=== PATIENT | female | born 1995 | race Two or more races ===

== ENCOUNTER → 2023-09-04 16:32 | Outpatient (REF) | payer OTHER, SELFPAY | LOC: PNTC 16:32 | PROVIDERS: ATTENDING PHYSICIAN Nurse Practitioner Family | DX: Z34.91 Encounter for supervision of normal pregnancy, unspecified, first trimester (principal) | CPT/HCPCS: 76801; 76817 ==

== ENCOUNTER → 2023-09-22 16:22 | Outpatient (REF) | payer OTHER, SELFPAY | LOC: PNTC 16:22 | PROVIDERS: ATTENDING PHYSICIAN Obstetrics & Gynecology | DX: Z36.0 Encounter for antenatal screening for chromosomal anomalies (principal); Z36.82 Encounter for antenatal screening for nuchal translucency | CPT/HCPCS: 36415; 76801; 76813 ==

== ENCOUNTER → 2023-11-10 16:21 | Outpatient (REF) | payer OTHER, SELFPAY | LOC: PNTC 16:21 | PROVIDERS: ATTENDING PHYSICIAN Obstetrics & Gynecology | DX: Z34.82 Encounter for supervision of other normal pregnancy, second trimester (principal) | CPT/HCPCS: 76805 ==

== ENCOUNTER → 2024-04-01 14:52 | Outpatient (REF) | payer OTHER, SELFPAY | LOC: PNTC 14:52 | PROVIDERS: ATTENDING PHYSICIAN Obstetrics & Gynecology | DX: O48.0 Post-term pregnancy (principal) | CPT/HCPCS: 59025 ==

== ENCOUNTER 2024-04-05 19:28 | Inpatient (IN) | payer OTHER, SELFPAY ==
[2024-04-05 19:31] VITALS: BMI 28.3
[2024-04-05 19:55] VITALS: BP 123/75
[2024-04-05 20:03] LABS: % Basophils 0.3 % (0-2); % Eosinophils 0.4 % (0-6); % Immature Granulocytes 0.7 % (0-0.5); % Lymphocytes 13.2 % (20.5-51.1); % Monocytes 7.3 % (1.7-9.3); % Neutrophils 78.1 % (42.2-75.2); Absolute Eosinophils 0.1 10^3/uL (0-0.7); Absolute Immature Granulocytes 0.1 10^3/uL (0-0.05); Absolute Lymphocytes 1.9 10^3/uL (1.2-3.4); Hematocrit 37.1 % (37.0-47.0); Hemoglobin 12.9 g/dL (12.0-16.0); Mean Corp Hgb Conc. 34.8 g/dL (33.0-37.0); Mean Corpuscular Hgb 28.9 pg (27.0-31.0); Mean Corpuscular Volume 83.2 fL (81.0-99.0); Mean Platelet Volume 10.6 fL (7.4-10.4); Nucleated Red Blood Cells % 0 %; Platelet Count 267 10^3/uL (130-400); Red Blood Cell Count 4.46 10^6/uL (4.20-5.40); Red Cell Dist. Width 13.9 % (11.5-14.5); White Blood Cell Count 14.1 10^3/uL (4.8-10.8)
[2024-04-05] MEDS: CYTOTEC 50 MICROGRAM VAG (20:12)
[2024-04-06] MEDS: LR 1000 IV ×4 (02:03→22:02)
[2024-04-06] MEDS: CYTOTEC 50 MICROGRAM PO ×3 (04:08→09:37)
[2024-04-06] MEDS: STADOL 1 MG IV ×2 (06:15→10:47)
[2024-04-06] MEDS: SUBLIMAZE 100 MCG EPIDURAL (14:29)
[2024-04-06] MEDS: FENTANYL/BUPIVACAINE 100 EPIDURAL ×2 (14:29→23:12)
[2024-04-06] MEDS: PENICILLIN 110 UNITS IV (14:46)
[2024-04-06] MEDS: CYTOTEC PO (14:55)
[2024-04-06] MEDS: PITOCIN 30 UNITS/NSS 500 ML IV (15:48)
[2024-04-06] MEDS: PENICILLIN 55 UNITS IV ×2 (18:34→22:29)
[2024-04-07] MEDS: BICITRA 30 ML PO (02:50)
[2024-04-07] MEDS: ANCEF 10 IV (02:50)
[2024-04-07] MEDS: TYLENOL 1000 MG PO (02:50)
[2024-04-07 03:33] LABS: B.E. Cord ABG -3.5 mMOL/L; Cord ABG Comment CORD BLOOD; HCO3 Cord ABG 22.7 mmol/L; O2 Saturation % Cord ABG 33.4 %; PCO2 Cord ABG 44 mmHg; PO2 Cord ABG 13 mmHg; pH Cord ABG 7.32
[2024-04-07 03:39] LABS: B.E. Cord ABG -4.9 mMOL/L; HCO3 Cord ABG 21.6 mmol/L; O2 Saturation % Cord ABG 35.2 %; PCO2 Cord ABG 44 mmHg; PO2 Cord ABG 14 mmHg
--- NOTE | 2024-04-07 04:11 | W.IMMPOSTOP ---
Surgical Immed Post Op Note
-
Primary Surgeon: Apple Melgar DO
Assisting Surgeon: Deysi Villareal RN
Pre-op Diagnosis: IOL at 41+3wks, intolerance of labor, meconium-stained fluid, GBS positive
Post-op Diagnosis: Same as above
Procedure Performed: PLTCS
Anesthesia Type: epidural
Specimen / Cultures: placenta; cord gases: 7.32, BE -3.2 and 7.3, BE -4.9
Estimated Blood Loss: 585ml
Complications: none
Operative Findings: normal uterus, b/l tubes and ovaries. Meconium-stained fluid. Female fetus in the OA position, no nuchal cord, though umbilical cord was notably short in length. Apgars 8/9, weight 2885gm. Grossly normal placenta. Mild atony
after delivery, Methergine x1 given. Small amount of oozing from left side of hysterotomy, O'leary suture placed on this side. Surgicel placed over hysterotomy. Hemostasis noted.
[2024-04-07] MEDS: PENICILLIN IV (05:06)
[2024-04-07] MEDS: TORADOL 15 MG IV ×3 (09:53→21:48)
[2024-04-07] MEDS: PRENATAL PLUS 1 TABLET PO (10:02)
[2024-04-07] MEDS: TYLENOL 650 MG PO (20:18)
[2024-04-08] MEDS: TORADOL 15 MG IV (03:52)
[2024-04-08 04:34] LABS: Hematocrit 35.4 % (37.0-47.0); Hemoglobin 11.8 g/dL (12.0-16.0); Mean Corp Hgb Conc. 33.3 g/dL (33.0-37.0); Mean Corpuscular Hgb 29.1 pg (27.0-31.0); Mean Corpuscular Volume 87.2 fL (81.0-99.0); Mean Platelet Volume 10.2 fL (7.4-10.4); Platelet Count 200 10^3/uL (130-400); Red Blood Cell Count 4.06 10^6/uL (4.20-5.40); Red Cell Dist. Width 14.6 % (11.5-14.5); White Blood Cell Count 16.2 10^3/uL (4.8-10.8)
--- NOTE | 2024-04-08 07:48 | W.PN.ANS.POP ---
Anesthesia Post Operative
- Anesthesia Post Op Note
Vital Signs Stable-See Nursing Note: Yes
Airway Patent: Yes
Adequate Pain Control: Yes
Change in Mental Status: No
Current Postoperative Nausea & Vomiting: No
Anesthesia Complications: No
General Anesthetic Recall: No
Unplanned Admission: No
Post Op Hydration Adequate: Yes
[2024-04-08] MEDS: PRENATAL PLUS 1 TABLET PO (08:43)
[2024-04-08] MEDS: MOTRIN 600 MG PO ×3 (10:41→23:03)
[2024-04-09] MEDS: PRENATAL PLUS 1 TABLET PO (07:55)
[2024-04-09] MEDS: SENOKOT-S 1 TABLET PO (10:45)
[2024-04-09 11:51] LABS: Syphilis/T. pallidum Ab Reflex Negative (Negative)
--- NOTE | 2024-04-09 14:44 | W.DS.TRANS ---
DC Summary - [employer]
-
Discharge Instructions:
Discharge Diagnosis/Procedures section
Instructions:
Stand-Alone Forms: LDRP Delivery
Changes to Home Medications: No
Discharge Medications:
DC Medications w/original date entered in [facility]
1 tab PO DAILY Supplement 04/05/24
acetaminophen 325 mg tablet 650 mg (2 x 325 mg) PO Q4HPRN PRN mild pain #0 tabs 04/09/24
calcium carbonate (Calcium Antacid) 400 mg (2 x 200 mg calcium (500 mg)) PO Q6HPRN PRN indigestion #0 tabs 04/09/24
ibuprofen 600 mg tablet 600 mg PO Q6HPRN PRN cramps #40 tabs 04/09/24
sennosides 8.6 mg-docusate sodium 50 mg tablet 1 tab PO DAILYPRN PRN constipation #0 tabs 04/09/24
simethicone 80 mg chewable tablet 80 mg PO TIDPRN PRN flatulence #0 tabs 04/09/24
Home Medication Changes
Pending Results: No
Total time spent discharging patient (in min): 20
--- NOTE | 2024-04-12 08:30 | PN.CDI ---
CDI
- -
CDI:
Please use your independent medical judgment in providing your response.
Physician Documentation Request
Admit Date: [f_Reg Admit Date Time]
Dear Doctor Richie
Clinical Indicators:
The diagnosis of Maternal inflammatory response, stage 1, grade 1 (also called early acute choriamnionitis} was included in the signed path report.
Additional clinical indicators in the chart include:
OR: induction of labor at 41+3 weeks, intolerance of labor, meconium-stained fluid, Group B strep positive.
Please indicate in your progress notes if you are in agreement that the above diagnosis is valid for this patient:
Acute chorioamnionitis is a valid diagnosis (Please include it in your progress notes)
Acute chorioamnionitis is not a valid diagnosis for this patient
Acute chorioamnionitis is not yet confirmed but remains a suspected condition
____ - Other
____ - Unable to determine
Use of terms such as suspected, likely, concern for, or probable are acceptable for a diagnosis that is being evaluated, monitored or treated as if it exists and can be coded in the inpatient setting, when documented at the time of discharge.
Thank you,
Nicole Dominguez
[employer] [facility] In[facility]
Please use your independent medical judgment in providing your response.
== END 2024-04-09 12:57 | disposition home or self-care (01) | DRG 788 ==
LOC: LDRP 19:28
PROVIDERS: Obstetrics & Gynecology; ADMITTING PHYSICIAN Obstetrics & Gynecology
PROC: 3E033VJ Introduction of Other Hormone into Peripheral Vein, Percutaneous Approach (ICD-10-PCS; 2024-04-05)
PROC: 3E0P7VZ Introduction of Hormone into Female Reproductive, Via Natural or Artificial Opening (ICD-10-PCS; 2024-04-05)
PROC: 4A0HXCZ Measurement of Products of Conception, Cardiac Rate, External Approach (ICD-10-PCS; 2024-04-07)
PROC: 0U7C7ZZ Dilation of Cervix, Via Natural or Artificial Opening (ICD-10-PCS; 2024-04-07)
PROC: 10D00Z1 Extraction of Products of Conception, Low, Open Approach (ICD-10-PCS; 2024-04-07)
DX: O48.0 Post-term pregnancy (principal); O69.3XX0 Labor and delivery complicated by short cord, not applicable or unspecified; O76 Abnormality in fetal heart rate and rhythm complicating labor and delivery; O77.0 Labor and delivery complicated by meconium in amniotic fluid; O99.824 Streptococcus B carrier state complicating childbirth; Z37.0 Single live birth; Z3A.41 41 weeks gestation of pregnancy
CPT/HCPCS: 88307; 36415; 82803; 85025; 85027; 86780; 86850; 86900; 86901